=== PATIENT | male | born 1970 | race Caucasian/White ===

== ENCOUNTER → 2018-10-23 10:55 | Outpatient (CLI) | payer OTHER, SELFPAY ==
--- NOTE | 2018-10-23 | DI.CT.S_ITS ---
PROCEDURE: CT CHEST ABD PEL W CON INDICATIONS: LYMPHADENOPATHY TECHNIQUE: After the administration of oral and intravenous contrast, 5 mm thick sections acquired from the lung apices to the symphysis. 5 mm coronal and sagittal reformats were performed, with additional 7 mm coronal MIP reformats through the lungs. For radiation dose reduction, the following was used: automated exposure control, adjustment of mA and/or kV according to patient size. COMPARISON: None. FINDINGS: Image quality: Excellent. CHEST: Lungs and pleura: No acute airspace opacities. No pleural effusions or pneumothorax. Central and peripheral airways appear patent and normal in caliber. Mediastinum: Heart size is normal. No pericardial effusion. No mediastinal or hilar adenopathy by size criteria. Thoracic aorta and central pulmonary arteries are normal in size. Esophagus is normal in caliber. No hiatal hernia. Chest wall: No axillary or supraclavicular adenopathy by size criteria. Thyroid gland demonstrates no significant CT abnormality. ABDOMEN: Solid organs: Liver is normal in size and enhancement. Gallbladder wall does not appear thickened. Biliary system is non dilated. Pancreas enhances normally. Spleen is normal in size and enhancement. No adrenal nodules. Kidneys demonstrate normal size and enhancement, without hydronephrosis. Peritoneum and bowel: Bowel loops demonstrate normal wall thickness and caliber. No free fluid or air. Incidental note is made of a normal-appearing appendix. Nodes and vessels: No retroperitoneal or mesenteric adenopathy by size criteria. Aorta and inferior vena cava are normal in size. Miscellaneous: No ventral hernias. PELVIS: Genitourinary: Bladder wall thickness is normal. Miscellaneous: No enlarged inguinal or pelvic lymph nodes are seen. There is a fat-containing right inguinal hernia seen. Bones: No suspicious bony lesions. No vertebral body compression fractures. Focal L5-S1 degenerative change is seen. No pars defects are seen. IMPRESSION: No enlarged lymph nodes are seen. No masses are seen. Incidental note is made of: Fat-containing right inguinal hernia Normal appendix Focal L5-S1 degenerative change Dictated by: Adalberto Viramontes M.D. on 10/23/2018 at 15:19 Approved by: Adalberto Viramontes M.D. on 10/23/2018 at 15:22
[2018-10-23 11:37] LABS: Hematocrit 40.8 % (41-53); Hemoglobin 13.8 g/dL (13.5-17.5); Mean Corpuscular HGB Conc 33.9 % (30-36); Mean Corpuscular Hemoglobin 29.2 PG (26-34); Mean Corpuscular Volume 86.1 fL (80-100); Platelet Count 221 X10^3/uL (150-400); Red Blood Cell Count 4.74 X10^6/uL (4.5-5.9); Red Cell Distribution Width 12.8 % (11.6-14.8); White Blood Cell Count 6.8 X10^3/uL (4.5-11.0)
[2018-10-23 12:08] LABS: Alanine Aminotransferase 36 IU/L (21-72); Albumin 4.1 g/dL (3.5-5.0); Alkaline Phosphatase 77 U/L (38-126); Aspartate Aminotransferase 22 IU/L (17-59); BUN Creatinine Ratio 22.9 (6-22); Bilirubin Total 0.5 mg/dL (0.2-1.3); Blood Urea Nitrogen 16 mg/dL (9-20); C-Reactive Protein Quant 0.5 mg/dL (<1.0); Calcium 8.9 mg/dL (8.4-10.2); Carbon Dioxide 28 mmol/L (22-32); Chloride 102 mmol/L (98-107); Erythrocyte Sedimentation Rate 18 MM/HR (0-15); Estimated Glomerular Filt Rate > 60.0 mL/min (>60); Globulin 3.1 g/dL (1.7-4.1); Glucose 81 mg/dL (70-100); Lactate Dehydrogenase 444 U/L (313-618); Potassium 3.9 mmol/L (3.4-5.1); Sodium 141 mmol/L (137-145); Total Protein 7.2 g/dL (6.3-8.2)
[2018-10-23 12:09] LABS: Albumin Globulin Ratio 1.3 (1.0-2.8); HEMOLYSIS < 15 (0-50)
[2018-10-23 12:33] LABS: Neutrophils Absolute Manual 3740 /uL (3000-5900); Total Cells Counted 100
[2018-10-23 12:34] LABS: RBC Morphology Normal Morphology
== END ==
PROVIDERS: Visit Provider Surgery
DX: R59.1 Generalized enlarged lymph nodes (principal)
CPT/HCPCS: 36415; 71260; 74177; 80053; 83615; 85025; 85651; 86140; 99213; Q9967

== ENCOUNTER → 2020-04-02 15:49 | Outpatient (CLI) | payer OTHER, SELFPAY ==
[2020-04-03 22:57] LABS: COVID19 Sendout Not Detected (Not Detect)
== END ==
PROVIDERS: PCP Family Medicine; Visit Provider Physician Assistant
DX: Z11.59 Encounter for screening for other viral diseases (principal)
CPT/HCPCS: 87635

== ENCOUNTER 2020-04-05 10:42 | Day surgery (SDC) | payer OTHER, SELFPAY ==
[2020-04-01 08:46] VITALS: BMI 33.8
[2020-04-05] VITALS (11 sets, daily range): BP systolic 97–145; BP diastolic 61–95; PULSE 65–91; RESP 12–25; TEMP 36.1–37.1; O2SAT 92–98; BMI 32.9
[2020-04-05] MEDS: LACTATED RINGERS 1,000 ML 42 ML IV ×2 (11:43→14:14)
--- NOTE | 2020-04-05 12:30 | PM.PREOP ---
Pre-operative Note COVID-19 COVID-19 status: Negative Result date/Date tested (Pos, Neg/Pending): 04/02/20 Interval Note History & Physical reviewed/Exam performed by Physician: Yes Changes to H&P: No
[2020-04-05] MEDS: fentaNYL 100 MCG/2 ML INJ 50 MCG IV ×2 (13:11→13:24)
[2020-04-05] MEDS: MIDAZOLAM 2 MG/2 ML VIAL IV (13:11)
--- NOTE | 2020-04-05 13:21 | SUR.PREOP ---
Block start time [1314] . Monitoring initiated and maintained throughout procedure. Oxygen and medications given per anesthesiologist instructions. Patient remained stable throughout procedure, no adverse reactions noted. Block end time [1320 ].
[2020-04-05] MEDS: CEFAZOLIN 1 GM/50 ML FROZ.PIGGY IV (13:27)
--- NOTE | 2020-04-05 13:58 | SUR.OPER ---
Lateral on padded OR bed with dolan bag positioner, head on pillow, gel axillary roll in place, bottom leg bent with gel pad under knee to foot, upper leg straight and supported with pillows. Operative arm secured in shoulder positioning suspension device. non-operative arm secured on padded arm board. Safety belt at hip, tape over blanket securing lower legs.
[2020-04-05] MEDS: BUPIVACAINE 0.5% W/ EPI (PF) 30 ML VIAL INJ (14:06)
[2020-04-05] MEDS: SODIUM CHLORIDE IRRIG SOLUTION 3,000 ML, EPINEPHrine 1 MG IRR (14:11)
--- NOTE | 2020-04-05 14:53 | PM.OP.1 ---
Operative Date/Time/Diagnoses Date of procedure: 04/05/20 Time of procedure: 14:53 Pre-op diagnosis: 1. Right shoulder calcific tendinitis 2. Right shoulder biceps tendinitis Post-op diagnosis: other (1. Right shoulder rotator cuff tendinitis 2. Tearing of superior glenohumeral ligament) Procedure & Clinicians Procedure: Right shoulder arthroscopy with major debridement of labral tear, superior glenohumeral ligament and subacromial decompression. Same procedure as scheduled: No Indications: The patient is a 49-year-old man who has had a long history of right shoulder pain with no improvement with several attempts at physical therapy. He has agreed to arthroscopy with debridement and potential biceps tenodesis after discussion of the risks benefits and alternatives. Risks discussed included but were not limited to: Failure to improve, stiffness, infection, nerve damage, deep venous thrombosis, pulmonary embolism, stroke, myocardial infarction, permanent paralysis and . Surgeon: Davidson Li Click Yes if Unassisted: Yes Anesthesia Type: General, Peripheral nerve block and Local Operative Notes Findings: 1. Normal glenohumeral cartilage 2. Widespread degenerative fraying of the glenohumeral labrum 3. Tearing of the superior glenohumeral ligament with intact middle and inferior glenohumeral ligaments. 4. Intact subscapularis 5. Normal appearing biceps tendon including when the tendon was pulled into the joint, normal appearing biceps insertion 6. Intact supraspinatus 7. Intact infraspinatus 8. Normal-appearing axillary pouch 9. Softening and fraying of the bursal surface of the rotator cuff with no aleksandra tearing. No evidence of calcific deposit. 10. Type 2 acromion with impingement lesion. 11. Acromioclavicular joint not visualized due to lack of preoperative symptoms from this source. Closure Type: primary Specimen(s): none sent Prosthetic devices, grafts, tissues, transplants, or devices: None Estimated Blood Loss (mL): 5 Blood products transfused: none Procedure in detail: The patient was seen in the preoperative area where he identified his right shoulder as the operative site and this was marked with my initials. He received preoperative antibiotics and underwent the induction of an interscalene block for postoperative pain control. He was taken to the operating room and placed on the operating room table in a supine position where he underwent a general anesthetic. He was examined under anesthesia and then repositioned in the left lateral decubitus position with an axillary roll and a beanbag to maintain the position. All pressure points were well padded. Was stabilized with adhesive tape to the table. The right arm was prepared for the fingertips to the base the neck with ChloraPrep in the usual fashion draped through sterile drapes. The arm was placed in 10 lb of balanced skin suspension. Subcutaneous landmarks were outlined on the skin with a marking pen and portal sites selected. Posterior portal was created for the arthroscope in the anterior portal used for the shaver. Diagnostic arthroscopy was performed with the result given above. The shaver was then introduced and used to debride the labral fraying and the torn fragments of the superior glenohumeral ligament which was not reconstructible. The arthroscope was then withdrawn and placed in the subacromial space through the posterior portal lateral portal was created for instrumentation. A bursectomy was performed for visualization. Due to the extensive impingement lesion the type 2 acromion was converted to a type 1 acromion using the cutting block technique. I carefully inspected the superior aspect of the rotator cuff. There was softening and fraying but no full or partial-thickness tearing. There were no obvious areas of calcific deposits. At this point the arthroscopic equipment was removed. The wounds were closed with 4 0 Monocryl and Steri-Strips. The subacromial area and the subcutaneous tissues were each injected with 10 mL of 0.5% Marcaine with epinephrine for postoperative pain control. Dressings of sterile 4x4s, an ABD and Tegaderm were applied followed by a sling. The patient was allowed to awaken from his anesthetic and taken to the recovery room having tolerated the procedure well. Complications: none Post-operative Condition: stable Disposition: PACU Plan for aftercare: The patient will be maintained on a standard subacromial decompression rehab protocol. He will be allowed to remove the sling as it is for comfort only. He will be discharged today.
--- NOTE | 2020-04-05 15:14 | SUR.PHASEI ---
Patient easily arouses to voice. VSS. + 2 right radial pulse. Gave po pain medication.
[2020-04-05] MEDS: OXYCODONE IR 5 MG TABLET PO (15:25)
--- NOTE | 2020-04-05 16:00 | SUR.PHASEI ---
I.S. provided, instructions given, patient able to inhale to 3000mmhg
[2020-04-05] MEDS: OXYCODONE/ACETAMINOPHEN 5/325 TABLET 1 TAB PO (16:35)
--- NOTE | 2020-04-05 16:36 | SUR.PHASEII ---
medicated for pain 01/23. Sitting up, ate applesauce and cheese stick. Stu Núñez RN resuming care.
== END 2020-04-05 17:07 | disposition home or self-care (01) ==
PROVIDERS: PCP Family Medicine; Referring Provider Family Medicine; Visit Provider Orthopaedic Surgery
PROC: (CPT 29827; principal; 2020-04-05 12:45)
DX: S43.431A Superior glenoid labrum lesion of right shoulder, initial encounter (principal); G47.33 Obstructive sleep apnea (adult) (pediatric); M77.8 Other enthesopathies, not elsewhere classified
CPT/HCPCS: 29823; 29826; 64450; J0171; J0330; J1100; J2250; J2405; J2704; J3010